=== PATIENT | male | born 1985 | race American Indian/Alaskan Native ===

== ENCOUNTER 2021-11-30 05:22 | Emergency (ER) | payer SELFPAY ==
[2021-11-30 06:40] VITALS: BP 125/88
== END 2021-11-30 10:05 | disposition left against medical advice (07) ==
LOC: ED 05:22
DX: M54.2 Cervicalgia (principal); M54.9 Dorsalgia, unspecified; Z53.21 Procedure and treatment not carried out due to patient leaving prior to being seen by health care provider